=== PATIENT | female | born 1950 | race Hispanic/Latino ===

== ENCOUNTER → 2020-03-25 | Outpatient (CLI) | payer MEDICARE | END | disposition home or self-care (01) | LOC: SHCH 10:23 | PROVIDERS: ATTEND Obstetrics & Gynecology | DX: Z12.31 Encounter for screening mammogram for malignant neoplasm of breast (principal); N64.89 Other specified disorders of breast | CPT/HCPCS: 77067 ==

== ENCOUNTER → 2022-04-28 | Outpatient (CLI) | payer OTHER, MEDICARE | END | disposition home or self-care (01) | LOC: RAH 11:14 | PROVIDERS: ATTEND Physical Medicine & Rehabilitation | DX: M54.2 Cervicalgia (principal); M25.511 Pain in right shoulder; M25.512 Pain in left shoulder; M75.42 Impingement syndrome of left shoulder; M54.12 Radiculopathy, cervical region | CPT/HCPCS: 72050; 73030 ==

== ENCOUNTER → 2022-05-19 | Outpatient (CLI) | payer OTHER, MEDICARE | END | disposition home or self-care (01) | LOC: RAH 13:29 | PROVIDERS: ATTEND Physical Medicine & Rehabilitation | DX: M47.812 Spondylosis without myelopathy or radiculopathy, cervical region (principal); M48.02 Spinal stenosis, cervical region; M54.2 Cervicalgia; M54.12 Radiculopathy, cervical region | CPT/HCPCS: 72141 ==

== ENCOUNTER 2022-05-23 17:52 | Emergency (ER) | payer OTHER, MEDICARE ==
[~2022-05-23] VITALS: Ht 157.5 cm; Wt 72.6 kg
[2022-05-23 18:23] LABS: BASOPHILS % (AUTO) 0.4 % (0.0-5.0); EOSINOPHILS % (AUTO) 0.1 % (0.0-8.0); HEMATOCRIT 39.3 % (36-48); LYMPHOCYTES % (AUTO) 15.9 % (21.0-51.0); MEAN CORPUSCULAR HEMOGLOBIN 29.2 pg (27.0-33.0); MEAN CORPUSCULAR HGB CONC 31.8 g/dL (32.0-36.0); MEAN CORPUSCULAR VOLUME 91.8 fL (79-99); MONOCYTES % (AUTO) 6.7 % (3.0-13.0); NEUTROPHILS % (AUTO) 76.7 % (40.0-77.0); PLATELET COUNT (AUTO) 201 K/uL (130-400); RED BLOOD CELL COUNT(AUTO) 4.28 MIL/uL (4.00-5.50); RED CELL DISTRIBUTION WIDTH 15.8 % (11.0-15.5); WHITE BLOOD COUNT (AUTO) 9.2 K/uL (4.8-10.8)
[2022-05-23 18:32] LABS: CREATININE 0.5 mg/dL (0.5-1.5); POTASSIUM 3.7 mmol/L (3.5-5.1)
[2022-05-23 18:36] LABS: ALBUMIN 3.2 g/dL (3.5-5.0); MAGNESIUM 1.8 mg/dL (1.80-2.40); TOTAL PROTEIN, SERUM 6.4 g/dL (6.0-8.3)
[2022-05-23] MEDS ORDERED: IOHEXOL 350 MG/ML 100ML INFUS..BTL IV ONE (21:58)
[2022-05-23] MEDS ORDERED: IBUP-1493 PO (22:51)
[2022-05-23] MEDS ORDERED: OMEP40CA21 PO (22:51)
[2022-05-23 23:00] VITALS: BP 108/71
== END 2022-05-23 23:17 | disposition home or self-care (01) ==
LOC: EDH 17:52
DX: M47.816 Spondylosis without myelopathy or radiculopathy, lumbar region (principal); R91.1 Solitary pulmonary nodule; K44.9 Diaphragmatic hernia without obstruction or gangrene; M19.90 Unspecified osteoarthritis, unspecified site; E78.00 Pure hypercholesterolemia, unspecified; I10 Essential (primary) hypertension; J44.9 Chronic obstructive pulmonary disease, unspecified; E03.9 Hypothyroidism, unspecified; Z79.899 Other long term (current) drug therapy
CPT/HCPCS: 99285; 74177; 76705; 71045; 83735; 84484 ×2; 80053; 83880; 85025; 85378; 36415; 93005; Q9967

== ENCOUNTER → 2022-07-28 | Outpatient (CLI) | payer OTHER, MEDICARE ==
[~2022-07-28] MED LIST: IBUP-1493 PO; OMEP40CA21 PO
== END | disposition home or self-care (01) ==
LOC: RAH 10:16
PROVIDERS: ATTEND Physician Assistant
DX: M47.817 Spondylosis without myelopathy or radiculopathy, lumbosacral region (principal); M47.811 Spondylosis without myelopathy or radiculopathy, occipito-atlanto-axial region; M46.1 Sacroiliitis, not elsewhere classified
CPT/HCPCS: 72110

== ENCOUNTER → 2022-07-31 | Outpatient (CLI) | payer OTHER, MEDICARE ==
[~2022-07-31] MED LIST changes: +PRED20TA3 PO
== END | disposition home or self-care (01) ==
LOC: RAH 10:46
PROVIDERS: ATTEND Physician Assistant
DX: M85.89 Other specified disorders of bone density and structure, multiple sites (principal); M46.1 Sacroiliitis, not elsewhere classified; M25.551 Pain in right hip; G14 Postpolio syndrome
CPT/HCPCS: 72170; 73522

== ENCOUNTER 2022-08-02 07:51 | Emergency (ER) | payer OTHER, MEDICARE ==
[~2022-08-02] VITALS: Ht 152.4 cm; Wt 77.1 kg
[~2022-08-02 07:51] MED LIST changes: -PRED20TA3 PO
[2022-08-02 10:00] LABS: BASOPHILS % (AUTO) 0.8 % (0.0-5.0); HEMATOCRIT 42.6 % (36-48); LYMPHOCYTES % (AUTO) 22.4 % (21.0-51.0); MEAN CORPUSCULAR HEMOGLOBIN 29.1 pg (27.0-33.0); MEAN CORPUSCULAR HGB CONC 31.9 g/dL (32.0-36.0); MEAN CORPUSCULAR VOLUME 91.2 fL (79-99); MONOCYTES % (AUTO) 7.5 % (3.0-13.0); NEUTROPHILS % (AUTO) 68.8 % (40.0-77.0); PLATELET COUNT (AUTO) 238 K/uL (130-400); RED BLOOD CELL COUNT(AUTO) 4.67 MIL/uL (4.00-5.50); RED CELL DISTRIBUTION WIDTH 14.4 % (11.0-15.5); WHITE BLOOD COUNT (AUTO) 7.4 K/uL (4.8-10.8)
[2022-08-02] MEDS ORDERED: MORPHINE 4 MG SYG IM ONE (10:00)
[2022-08-02 10:13] LABS: CREATININE 0.5 mg/dL (0.5-1.5); POTASSIUM 3.7 mmol/L (3.5-5.1)
[2022-08-02 10:17] LABS: ALBUMIN 3.5 g/dL (3.5-5.0); CRP QUANTITATIVE 6.8 mg/L (0.00-9.0); TOTAL PROTEIN, SERUM 6.8 g/dL (6.0-8.3)
[2022-08-02 11:00] LABS: ERYTHROCYTE SEDIMENTATION RATE 16 MM/HR (0-30)
[2022-08-02] MEDS ORDERED: DEXAMETHASONE SOD PHOSPHATE 4 MG/ML 1ML VIAL IVP ONE (11:00)
[2022-08-02] MEDS ORDERED: PRED20TA3 PO (12:04)
[2022-08-02 12:38] VITALS: BP 137/70
== END 2022-08-02 12:27 | disposition home or self-care (01) ==
LOC: EDH 07:51
DX: M46.1 Sacroiliitis, not elsewhere classified (principal); Z86.12 Personal history of poliomyelitis; I10 Essential (primary) hypertension; E78.00 Pure hypercholesterolemia, unspecified; M19.90 Unspecified osteoarthritis, unspecified site; Z98.890 Other specified postprocedural states
CPT/HCPCS: 99284; 96374; 80053; 85025; 85651; 86140; 36415; 96372; J1100; J2270

== ENCOUNTER 2022-08-09 12:06 | Emergency (ER) | payer OTHER, MEDICARE ==
[~2022-08-09] VITALS: Ht 144.8 cm; Wt 70.3 kg
[~2022-08-09 12:06] MED LIST changes: +PRED20TA3 PO
[2022-08-09] MEDS ORDERED: MORPHINE 4 MG SYG IVP ONE ×2 (12:30→15:30)
[2022-08-09] MEDS ORDERED: ONDANSETRON 4MG INJ IV ONE (12:30)
[2022-08-09 12:55] LABS: BASOPHILS % (AUTO) 0.4 % (0.0-5.0); EOSINOPHILS % (AUTO) 0.1 % (0.0-8.0); HEMATOCRIT 43.3 % (36-48); LYMPHOCYTES % (AUTO) 14.9 % (21.0-51.0); MEAN CORPUSCULAR HEMOGLOBIN 29.6 pg (27.0-33.0); MEAN CORPUSCULAR HGB CONC 31.9 g/dL (32.0-36.0); MEAN CORPUSCULAR VOLUME 92.9 fL (79-99); MONOCYTES % (AUTO) 5.6 % (3.0-13.0); NEUTROPHILS % (AUTO) 78.2 % (40.0-77.0); PLATELET COUNT (AUTO) 239 K/uL (130-400); RED BLOOD CELL COUNT(AUTO) 4.66 MIL/uL (4.00-5.50); RED CELL DISTRIBUTION WIDTH 14.5 % (11.0-15.5); WHITE BLOOD COUNT (AUTO) 10.9 K/uL (4.8-10.8)
[2022-08-09 13:25] LABS: CREATININE 0.5 mg/dL (0.5-1.5); POTASSIUM 3.8 mmol/L (3.5-5.1)
[2022-08-09 13:34] LABS: TOTAL PROTEIN, SERUM 6.4 g/dL (6.0-8.3)
[2022-08-09] MEDS ORDERED: IOHEXOL-350 75 ML VIAL IV ONE (13:44)
[2022-08-09 15:45] LABS: APPEARANCE,URINE CLEAR (CLEAR); BILIRUBIN,URINE NEGATIVE (NEGATIVE); COLOR,URINE LIGHT-YELLOW (YELLOW); GLUCOSE, URINE (UA) NEGATIVE (NEGATIVE); KETONES,URINE NEGATIVE (NEGATIVE); LEUKOCYTE ESTERASE ,URINE NEGATIVE Leu/uL (NEGATIVE); NITRATE,URINE NEGATIVE (NEGATIVE); OCCULT BLOOD,URINE NEGATIVE (NEGATIVE); PROTEIN,URINE 10 mg/dL (NEGATIVE); UROBILINOGEN,URINE 0.2 mg/dL (0.2-1.0)
[2022-08-09 15:46] LABS: BACTERIA,URINE RARE /HPF (None Seen); MUCUS,URINE RARE LPF (None Seen); SQUAMOUS EPITHELIAL CELL,UR RARE /HPF (0-2); YEAST,URINE BUDDING RARE /HPF (None Seen)
[2022-08-09] MEDS ORDERED: OXYC-38 PO (16:08)
[2022-08-09 16:28] VITALS: BP 126/71
== END 2022-08-09 16:40 | disposition home or self-care (01) ==
LOC: EDH 12:06
DX: M54.50 Low back pain, unspecified (principal); R10.12 Left upper quadrant pain; I10 Essential (primary) hypertension; E78.00 Pure hypercholesterolemia, unspecified; Z90.49 Acquired absence of other specified parts of digestive tract; Z79.1 Long term (current) use of non-steroidal anti-inflammatories (NSAID); Z79.52 Long term (current) use of systemic steroids; Z79.899 Other long term (current) drug therapy
CPT/HCPCS: 99285; 74177; 96374; 96375; 84484; 80053; 83690; 85025; 81001; 36415; 96376; 93005; J2405; J2270 ×2; Q9967

== ENCOUNTER 2022-08-12 10:42 | Emergency (ER) | payer OTHER, MEDICARE ==
[~2022-08-12] VITALS: Ht 152.4 cm; Wt 70.3 kg
[~2022-08-12 10:42] MED LIST changes: +OXYC-38 PO
[2022-08-12 11:42] LABS: BASOPHILS % (AUTO) 0.3 % (0.0-5.0); EOSINOPHILS % (AUTO) 0.1 % (0.0-8.0); LYMPHOCYTES % (AUTO) 12.8 % (21.0-51.0); MEAN CORPUSCULAR HEMOGLOBIN 29.7 pg (27.0-33.0); MONOCYTES % (AUTO) 7.8 % (3.0-13.0); NEUTROPHILS % (AUTO) 78.4 % (40.0-77.0); PLATELET COUNT (AUTO) 238 K/uL (130-400); RED BLOOD CELL COUNT(AUTO) 4.41 MIL/uL (4.00-5.50); RED CELL DISTRIBUTION WIDTH 14.2 % (11.0-15.5); WHITE BLOOD COUNT (AUTO) 10.8 K/uL (4.8-10.8)
[2022-08-12 12:17] LABS: CREATININE 0.6 mg/dL (0.5-1.5); POTASSIUM 4.2 mmol/L (3.5-5.1)
[2022-08-12 12:21] LABS: ALBUMIN 3.2 g/dL (3.5-5.0); TOTAL PROTEIN, SERUM 6.6 g/dL (6.0-8.3)
[2022-08-12] MEDS ORDERED: MORPHINE 2 MG SYG IVP ONE (13:00)
[2022-08-12] MEDS ORDERED: SOLU-MEDROL 125MG VIAL IVP ONE (13:00)
[2022-08-12] MEDS ORDERED: ONDANSETRON 4MG INJ IVP ONE (13:00)
[2022-08-12] MEDS ORDERED: 0.9% NACL 500ML IV.SOLN 500 ML IV ONE (13:00)
[2022-08-12] MEDS ORDERED: CYCL5TAB PO (14:51)
[2022-08-12] MEDS ORDERED: LIDOP TP (14:51)
[2022-08-12] MEDS ORDERED: PANT40TA54 PO (14:51)
[2022-08-12 15:11] VITALS: BP 132/68
[2022-08-17] MEDS ORDERED: ACET-2079 PO (14:43)
[2022-08-17] MEDS ORDERED: ONDA4TAB10 PO (14:43)
[2022-08-17] MEDS ORDERED: GABA600T10 PO (14:43)
[2022-08-17] MEDS ORDERED: ALBU6.7H14 IH (14:43)
[2022-08-17] MEDS ORDERED: TRAM50TA4 PO (14:43)
[2022-08-17] MEDS ORDERED: CYCL-309 PO (14:43)
[2022-08-17] MEDS ORDERED: MELO-106 PO (14:43)
[2022-08-17] MEDS ORDERED: PANT40TA54 PO (14:43)
[2022-08-17] MEDS ORDERED: LEVO100C4 PO (14:43)
[2022-08-17] MEDS ORDERED: ISOS30TA92 PO (14:43)
[2022-08-17] MEDS ORDERED: PARO10TA71 PO (14:43)
[2022-08-17] MEDS ORDERED: ALBU90AE2 IH (14:43)
== END 2022-08-12 15:10 | disposition home or self-care (01) ==
LOC: EDH 10:42
DX: R91.1 Solitary pulmonary nodule (principal); M47.816 Spondylosis without myelopathy or radiculopathy, lumbar region; Z79.1 Long term (current) use of non-steroidal anti-inflammatories (NSAID); Z79.52 Long term (current) use of systemic steroids; Z85.01 Personal history of malignant neoplasm of esophagus
CPT/HCPCS: 99285; 74176; 96374; 96375; 80053; 83690; 85025; 36415; J2930; J2405

== ENCOUNTER 2022-09-26 15:08 | Inpatient (IN) | payer OTHER, MEDICARE ==
[~2022-09-26] VITALS: Ht 160 cm; Wt 69.1 kg
[~2022-09-26 15:08] MED LIST changes: +ACET-2893 PO; +ALBU6.7H14 IH; +ALBU90AE2 IH; +CYCL-309 PO; +DEXA4TAB PO; +GABA600T10 PO; -IBUP-1493 PO; +ISOS30TA92 PO; +LACT PO; +LEVO100C4 PO; +LIDOP TP; +MELO-106 PO; -OMEP40CA21 PO; +ONDA4TAB10 PO; +PANT40TA54 PO; +PARO10TA71 PO; +PERCT PO; -PRED20TA3 PO; +TRAM50TA4 PO
[2022-09-26] MEDS ORDERED: ZOSYN 3.375GM +NS 50ML IVPB ONE (15:30)
[2022-09-26] MEDS ORDERED: VANCOMYCIN KIT 1 GM/250 ML IV.KIT IV ONE (15:30)
[2022-09-26] MEDS ORDERED: 0.9%NACL 1000ML 1,000 ML IV ONE (15:30)
[2022-09-26 15:58] LABS: BASOPHILS % (AUTO) 0.8 % (0.0-5.0); EOSINOPHILS % (AUTO) 0.3 % (0.0-8.0); HEMATOCRIT 34.3 % (36-48); LYMPHOCYTES % (AUTO) 9.4 % (21.0-51.0); MEAN CORPUSCULAR HEMOGLOBIN 28.9 pg (27.0-33.0); MEAN CORPUSCULAR HGB CONC 31.8 g/dL (32.0-36.0); MONOCYTES % (AUTO) 11.3 % (3.0-13.0); NEUTROPHILS % (AUTO) 71.4 % (40.0-77.0); NUCLEATED RED BLOOD CELLS 0.5 % (0.0-0.19); PLATELET COUNT (AUTO) 285 K/uL (130-400); RED BLOOD CELL COUNT(AUTO) 3.77 MIL/uL (4.00-5.50); RED CELL DISTRIBUTION WIDTH 16.6 % (11.0-15.5); WHITE BLOOD COUNT (AUTO) 13.2 K/uL (4.8-10.8)
[2022-09-26] MEDS ORDERED: VANCOMYCIN 1G/250ML KIT 250 ML IV ONE (16:00)
[2022-09-26 16:07] LABS: INR 1.01 (0.85-1.15)
[2022-09-26 16:09] LABS: PARTIAL THROMBOPLASTIN TIME 33.1 SEC (26.3-35.5)
[2022-09-26 16:18] LABS: CREATININE 0.3 mg/dL (0.5-1.5); POTASSIUM 4.3 mmol/L (3.5-5.1)
[2022-09-26 16:19] LABS: ALBUMIN 1.6 g/dL (3.5-5.0)
[2022-09-26] MEDS ORDERED: KETOROLAC 15MG/ML VIAL (15MG/ML) IV ONE (16:30)
[2022-09-26 16:34] LABS: APPEARANCE,URINE CLEAR (CLEAR); BILIRUBIN,URINE NEGATIVE (NEGATIVE); COLOR,URINE LIGHT-YELLOW (YELLOW); GLUCOSE, URINE (UA) NEGATIVE (NEGATIVE); KETONES,URINE NEGATIVE (NEGATIVE); LEUKOCYTE ESTERASE ,URINE NEGATIVE Leu/uL (NEGATIVE); NITRATE,URINE NEGATIVE (NEGATIVE); OCCULT BLOOD,URINE MODERATE (NEGATIVE); PROTEIN,URINE NEGATIVE (NEGATIVE); UROBILINOGEN,URINE 0.2 mg/dL (0.2-1.0)
[2022-09-26 16:42] LABS: MUCUS,URINE RARE LPF (None Seen); WBC,URINE 0-1 /HPF (0-1)
[2022-09-26 16:51] LABS: BAND NEUTROPHILS % (MANUAL) 50 % (0-2); LYMPHOCYTES % (MANUAL) 15 % (22-44); MONOCYTES % (MANUAL) 11 % (2-9); SEGMENTED NEUTROPHILS % 24 % (40-70)
[2022-09-26 16:55] LABS: MAN.DIFF COMMENT-IMPRESSION MANUAL DIFFERENTIAL; PLATELET MORPHOLOGY COMMENT ADEQUATE
[2022-09-26] MEDS ORDERED: LACTATED RINGERS 1000ML 1,000 ML IV ONE (17:00)
[2022-09-26] MEDS ORDERED: DIATR MEGLU/DIATRIZOATE SODIUM 30 ML BOTTLE ONE (17:18)
[2022-09-26] MEDS ORDERED: VANCOMYCIN PROTOCOL PER PHARMACY IV SCH (18:00)
[2022-09-26] MEDS ORDERED: HYDRALAZINE 20MG/ML VIAL IV PRN (18:00)
[2022-09-26] MEDS: INSULIN HUMULIN R 100 UNIT/ML 3ML SQ SCH ×2 (18:00→22:20)
[2022-09-26] MEDS ORDERED: GLUCAGON 1MG KIT 1 MG ML IM PRN (18:00)
[2022-09-26] MEDS: LACTATED RINGERS 1000ML 1,000 ML IV SCH ×2 (18:00→22:21)
[2022-09-26] MEDS ORDERED: DEXTROSE 50%-WATER 50 ML DISP.SYRIN IV PRN (18:00)
[2022-09-26] MEDS ORDERED: DiphenhydrAMINE HCL 50 MG/ML VIAL IV PRN (18:00)
[2022-09-26] MEDS ORDERED: ALBUTEROL 0.083% 2.5 MG/3 ML INH IH PRN (18:00)
[2022-09-26] MEDS ORDERED: IOHEXOL 350 MG/ML 100ML INFUS..BTL IV ONE (18:40)
[2022-09-26] MEDS ORDERED: 0.9%NACL 50ML IV SCH (22:00)
[2022-09-26] MEDS: ZOSYN 3.375GM +NS 50ML IVPB SCH (22:20)
[2022-09-26] MEDS: FAMOTIDINE 20MG VIAL IV SCH (22:20)
[2022-09-27] MEDS: FLUCONAZOLE 200 MG/NS 100 ML IV SCH (02:19)
[2022-09-27 02:23] LABS: APPEARANCE,URINE CLEAR (CLEAR); BILIRUBIN,URINE NEGATIVE (NEGATIVE); COLOR,URINE LIGHT-YELLOW (YELLOW); GLUCOSE, URINE (UA) NEGATIVE (NEGATIVE); KETONES,URINE NEGATIVE (NEGATIVE); LEUKOCYTE ESTERASE ,URINE NEGATIVE Leu/uL (NEGATIVE); NITRATE,URINE NEGATIVE (NEGATIVE); OCCULT BLOOD,URINE NEGATIVE (NEGATIVE); PROTEIN,URINE NEGATIVE (NEGATIVE); UROBILINOGEN,URINE 0.2 mg/dL (0.2-1.0)
[2022-09-27 05:40] LABS: BASOPHILS % (AUTO) 0.5 % (0.0-5.0); EOSINOPHILS % (AUTO) 0.2 % (0.0-8.0); HEMATOCRIT 31.8 % (36-48); MEAN CORPUSCULAR HEMOGLOBIN 29.1 pg (27.0-33.0); MEAN CORPUSCULAR HGB CONC 31.4 g/dL (32.0-36.0); MEAN CORPUSCULAR VOLUME 92.4 fL (79-99); MONOCYTES % (AUTO) 10.4 % (3.0-13.0); NEUTROPHILS % (AUTO) 75.5 % (40.0-77.0); NUCLEATED RED BLOOD CELLS 0.2 % (0.0-0.19); PLATELET COUNT (AUTO) 233 K/uL (130-400); RED BLOOD CELL COUNT(AUTO) 3.44 MIL/uL (4.00-5.50); RED CELL DISTRIBUTION WIDTH 16.9 % (11.0-15.5); WHITE BLOOD COUNT (AUTO) 10.4 K/uL (4.8-10.8)
[2022-09-27 05:57] LABS: PROTHROMBIN TIME 10.9 SEC (9.6-11.6)
[2022-09-27 05:59] LABS: CREATININE 0.3 mg/dL (0.5-1.5); MAGNESIUM 1.8 mg/dL (1.80-2.40); PHOSPHORUS 3.3 mg/dL (2.5-4.9)
[2022-09-27] MEDS: INSULIN HUMULIN R 100 UNIT/ML 3ML SQ SCH ×3 (06:00→18:00)
[2022-09-27] MEDS: ZOSYN 3.375GM +NS 50ML IVPB SCH ×3 (06:11→21:03)
[2022-09-27] MEDS: FAMOTIDINE 20MG VIAL IV SCH ×2 (09:59→21:03)
[2022-09-27] MEDS: LACTATED RINGERS 1000ML 1,000 ML IV SCH ×3 (10:00→21:03)
[2022-09-27 17:30] VITALS: BP 117/64
[2022-09-27] MEDS: VANCOMYCIN 1G/250ML KIT 250 ML IV SCH (18:26)
[2022-09-27 19:30] VITALS: BP 122/73
[2022-09-27 23:30] VITALS: BP 138/62
[2022-09-28] VITALS (31 sets, daily range): BP systolic 101–167; BP diastolic 41–73
[2022-09-28] MEDS: FLUCONAZOLE 200 MG/NS 100 ML IV SCH (02:20)
[2022-09-28] MEDS: LACTATED RINGERS 1000ML 1,000 ML IV SCH ×3 (04:28→19:52)
[2022-09-28] MEDS: ZOSYN 3.375GM +NS 50ML IVPB SCH ×3 (05:16→19:52)
[2022-09-28] MEDS: INSULIN HUMULIN R 100 UNIT/ML 3ML SQ SCH ×4 (05:17→18:00)
[2022-09-28 06:40] LABS: BASOPHILS % (AUTO) 0.3 % (0.0-5.0); EOSINOPHILS % (AUTO) 0.2 % (0.0-8.0); HEMATOCRIT 27.3 % (36-48); LYMPHOCYTES % (AUTO) 12.4 % (21.0-51.0); MEAN CORPUSCULAR HEMOGLOBIN 29.1 pg (27.0-33.0); MEAN CORPUSCULAR HGB CONC 31.9 g/dL (32.0-36.0); MEAN CORPUSCULAR VOLUME 91.3 fL (79-99); MONOCYTES % (AUTO) 12.4 % (3.0-13.0); NEUTROPHILS % (AUTO) 70.4 % (40.0-77.0); PLATELET COUNT (AUTO) 206 K/uL (130-400); RED BLOOD CELL COUNT(AUTO) 2.99 MIL/uL (4.00-5.50); RED CELL DISTRIBUTION WIDTH 16.6 % (11.0-15.5)
[2022-09-28 06:52] LABS: CREATININE 0.2 mg/dL (0.5-1.5); POTASSIUM 3.4 mmol/L (3.5-5.1)
[2022-09-28] MEDS: FAMOTIDINE 20MG VIAL IV SCH ×2 (08:44→19:52)
[2022-09-28] MEDS: POTASSIUM CHLORIDE 10MEQ/100ML 100 ML IV PRN (08:44)
[2022-09-28] MEDS ORDERED: MIDAZOLAM HCL 1 MG/ML 2ML VIAL ONE (12:59)
[2022-09-28] MEDS ORDERED: LIDOCAINE PF 100MG/5ML (2%) SYRINGE 5ML ONE (12:59)
[2022-09-28] MEDS ORDERED: SUCCINYLCHOLINE CHLORIDE 20 MG/ML 10 ML VIAL ONE (12:59)
[2022-09-28] MEDS ORDERED: DEXAMETHASONE SOD PHOSPHATE 10MG/ML 1ML VIAL ONE (12:59)
[2022-09-28] MEDS ORDERED: NEOSTIGMINE 5MG/5ML SYR IV ONE (13:00)
[2022-09-28] MEDS ORDERED: PROPOFOL 10 MG/ML 20ML VIAL IV ONE (13:00)
[2022-09-28] MEDS ORDERED: ONDANSETRON 4MG INJ ONE (13:00)
[2022-09-28] MEDS ORDERED: FENTANYL CITRATE PF 50 MCG/1 ML 2ML VIAL ONE (13:00)
[2022-09-28] MEDS ORDERED: GLYCOPYRROLATE 1 MG/5 ML SYRINGE ONE (13:00)
[2022-09-28] MEDS ORDERED: ROCURONIUM 10MG/1ML SYR 10 MG/ML ML ONE (13:00)
[2022-09-28] MEDS ORDERED: MORPHINE PF 100MG/10ML AMP IV ONE (14:05)
[2022-09-28] MEDS ORDERED: BUPIVACAINE/PF 0.25% 30ML VIAL IJ ONE (14:20)
[2022-09-28] MEDS ORDERED: KETOROLAC 30MG VIAL (30MG/ML) ONE (14:27)
[2022-09-28] MEDS ORDERED: PHENYLEPHRINE HCL 10 MG/ML 1ML VIAL IV ONE (14:44)
[2022-09-28] MEDS: ONDANSETRON 4MG INJ IVP PRN (16:03)
[2022-09-28] MEDS ORDERED: PROMETHAZINE HCL 25 MG/ML 1ML AMPULE IM ONE (16:12)
[2022-09-28] MEDS ORDERED: CLINIMIX-E 5%AA /D15%W 2000ML 2,000 ML IV ONE (17:30)
[2022-09-28] MEDS: VANCOMYCIN 1G/250ML KIT 250 ML IV SCH (17:47)
[2022-09-29] VITALS (7 sets, daily range): BP systolic 122–158; BP diastolic 58–92
[2022-09-29] MEDS: INSULIN HUMULIN R 100 UNIT/ML 3ML SQ SCH ×4 (00:13→17:22)
[2022-09-29] MEDS: FLUCONAZOLE 200 MG/NS 100 ML IV SCH (02:11)
[2022-09-29] MEDS: ZOSYN 3.375GM +NS 50ML IVPB SCH ×3 (05:33→21:51)
[2022-09-29] MEDS: LACTATED RINGERS 1000ML 1,000 ML IV SCH ×2 (06:20→10:48)
[2022-09-29 06:42] LABS: BASOPHILS % (AUTO) 0.3 % (0.0-5.0); EOSINOPHILS % (AUTO) 0.1 % (0.0-8.0); HEMATOCRIT 28.4 % (36-48); LYMPHOCYTES % (AUTO) 6.5 % (21.0-51.0); MEAN CORPUSCULAR HEMOGLOBIN 28.7 pg (27.0-33.0); MEAN CORPUSCULAR HGB CONC 30.6 g/dL (32.0-36.0); MEAN CORPUSCULAR VOLUME 93.7 fL (79-99); MONOCYTES % (AUTO) 4.4 % (3.0-13.0); NEUTROPHILS % (AUTO) 87.6 % (40.0-77.0); PLATELET COUNT (AUTO) 213 K/uL (130-400); RED BLOOD CELL COUNT(AUTO) 3.03 MIL/uL (4.00-5.50); RED CELL DISTRIBUTION WIDTH 16.4 % (11.0-15.5); WHITE BLOOD COUNT (AUTO) 15.3 K/uL (4.8-10.8)
[2022-09-29 06:50] LABS: CREATININE 0.5 mg/dL (0.5-1.5); POTASSIUM 3.7 mmol/L (3.5-5.1)
[2022-09-29] MEDS: MORPHINE 2 MG SYG IVP PRN ×3 (07:25→19:52)
[2022-09-29] MEDS: ONDANSETRON 4MG INJ IVP PRN ×2 (07:25→19:52)
[2022-09-29] MEDS: FAMOTIDINE 20MG VIAL IV SCH ×2 (09:25→19:52)
[2022-09-29] MEDS: POTASSIUM CHLORIDE 10MEQ/100ML 100 ML IV PRN (17:25)
[2022-09-29] MEDS ORDERED: VANCOMYCIN 1G/250ML KIT 250 ML IV SCH (19:00)
[2022-09-29] MEDS ORDERED: FAT EMULSIONS 20% 250ML 250 ML IV ONE (19:30)
[2022-09-29] MEDS ORDERED: CLINIMIX-E 5%AA /D15%W 2000ML 2,000 ML IV ONE (19:30)
[2022-09-29] MEDS: VANCOMYCIN 1G/250ML KIT 250 ML IV SCH (19:51)
[2022-09-30] MEDS: INSULIN HUMULIN R 100 UNIT/ML 3ML SQ SCH ×4 (00:48→16:40)
[2022-09-30] MEDS: FLUCONAZOLE 200 MG/NS 100 ML IV SCH (01:16)
[2022-09-30] MEDS: MORPHINE 2 MG SYG IVP PRN ×4 (01:24→17:16)
[2022-09-30 04:19] VITALS: BP 143/72
[2022-09-30 05:27] LABS: BASOPHILS % (AUTO) 0.1 % (0.0-5.0); EOSINOPHILS % (AUTO) 0.1 % (0.0-8.0); HEMATOCRIT 23.6 % (36-48); MEAN CORPUSCULAR HEMOGLOBIN 28.9 pg (27.0-33.0); MEAN CORPUSCULAR HGB CONC 30.9 g/dL (32.0-36.0); MEAN CORPUSCULAR VOLUME 93.3 fL (79-99); NEUTROPHILS % (AUTO) 82.2 % (40.0-77.0); PLATELET COUNT (AUTO) 194 K/uL (130-400); RED BLOOD CELL COUNT(AUTO) 2.53 MIL/uL (4.00-5.50); RED CELL DISTRIBUTION WIDTH 16.7 % (11.0-15.5); WHITE BLOOD COUNT (AUTO) 13.4 K/uL (4.8-10.8)
[2022-09-30] MEDS: ZOSYN 3.375GM +NS 50ML IVPB SCH ×3 (05:45→21:07)
[2022-09-30 05:56] LABS: ALBUMIN 1.2 g/dL (3.5-5.0); CREATININE 0.4 mg/dL (0.5-1.5); MAGNESIUM 1.7 mg/dL (1.80-2.40); POTASSIUM 3.5 mmol/L (3.5-5.1); TOTAL PROTEIN, SERUM 4.4 g/dL (6.0-8.3)
[2022-09-30 08:00] VITALS: BP 134/67
[2022-09-30] MEDS ORDERED: MAGNESIUM 2GM PREMIX 50ML 50 ML IV SCH (08:00)
[2022-09-30] MEDS ORDERED: POTASSIUM CHLORIDE 20 MEQ/100 ML BAG IV SCH (08:15)
[2022-09-30] MEDS: FAMOTIDINE 20MG VIAL IV SCH ×2 (08:37→21:07)
[2022-09-30 12:00] VITALS: BP 111/79
[2022-09-30] MEDS: VANCOMYCIN 1G/250ML KIT 250 ML IV SCH (13:58)
[2022-09-30] MEDS ORDERED: [UNRECOGNIZED DRUG - NUTRITION] IV ONE (15:00)
[2022-09-30 16:00] VITALS: BP 138/64
[2022-09-30] MEDS: MAGNESIUM 2GM PREMIX 50ML 50 ML IV PRN (17:57)
[2022-09-30 19:50] VITALS: BP 158/73
[2022-09-30 23:15] VITALS: BP 157/83
[2022-10-01] VITALS (7 sets, daily range): BP systolic 142–171; BP diastolic 62–81
[2022-10-01] MEDS: FLUCONAZOLE 200 MG/NS 100 ML IV SCH (01:47)
[2022-10-01] MEDS: ZOSYN 3.375GM +NS 50ML IVPB SCH ×3 (05:22→22:28)
[2022-10-01] MEDS: MORPHINE 2 MG SYG IVP PRN ×5 (05:23→17:34)
[2022-10-01] MEDS: INSULIN HUMULIN R 100 UNIT/ML 3ML SQ SCH ×4 (05:37→17:03)
[2022-10-01 07:52] LABS: BASOPHILS % (AUTO) 0.3 % (0.0-5.0); EOSINOPHILS % (AUTO) 0.4 % (0.0-8.0); HEMATOCRIT 23.8 % (36-48); LYMPHOCYTES % (AUTO) 13.4 % (21.0-51.0); MEAN CORPUSCULAR HEMOGLOBIN 28.7 pg (27.0-33.0); MEAN CORPUSCULAR HGB CONC 31.1 g/dL (32.0-36.0); MEAN CORPUSCULAR VOLUME 92.2 fL (79-99); MONOCYTES % (AUTO) 7.8 % (3.0-13.0); NEUTROPHILS % (AUTO) 76.3 % (40.0-77.0); NUCLEATED RED BLOOD CELLS 0.4 % (0.0-0.19); PLATELET COUNT (AUTO) 183 K/uL (130-400); RED BLOOD CELL COUNT(AUTO) 2.58 MIL/uL (4.00-5.50); RED CELL DISTRIBUTION WIDTH 16.8 % (11.0-15.5); WHITE BLOOD COUNT (AUTO) 6.8 K/uL (4.8-10.8)
[2022-10-01 08:08] LABS: ALBUMIN 1.3 g/dL (3.5-5.0); CREATININE 0.3 mg/dL (0.5-1.5); MAGNESIUM 1.8 mg/dL (1.80-2.40); POTASSIUM 3.9 mmol/L (3.5-5.1); TOTAL PROTEIN, SERUM 4.6 g/dL (6.0-8.3)
[2022-10-01] MEDS: FAMOTIDINE 20MG VIAL IV SCH ×2 (08:36→21:05)
[2022-10-01] MEDS ORDERED: VANCOMYCIN 1G/250ML KIT 250 ML IV SCH (09:00)
[2022-10-01] MEDS: NYSTATIN 100000 UNIT/ML 5ML UDCUP PO SCH (17:33)
[2022-10-01] MEDS ORDERED: FAT EMULSIONS 20% 250ML 250 ML IV ONE (19:00)
[2022-10-01] MEDS ORDERED: ALTEPLASE 2MG VIAL 2 MG/VIAL VIAL IVCATH ONE (20:00)
[2022-10-01] MEDS ORDERED: MULTITRACE-4 ADULT 10ML VIAL 3 ML, M.V.I. IV [ADULT] 10 ML in CLINIMIX-E 5%AA /D15%W 2... IV ONE (20:00)
[2022-10-01] MEDS: METOCLOPRAMIDE 10 MG/2 ML VIAL IVP SCH (21:06)
[2022-10-01] MEDS: 0.9% NACL 250ML 250 ML IV SCH (22:06)
[2022-10-01] MEDS: VANCOMYCIN 750MG VIAL IVPB SCH (22:06)
[2022-10-02] MEDS: NYSTATIN 100000 UNIT/ML 5ML UDCUP PO SCH ×3 (02:09→18:33)
[2022-10-02] MEDS: FLUCONAZOLE 200 MG/NS 100 ML IV SCH (02:09)
[2022-10-02] MEDS: INSULIN HUMULIN R 100 UNIT/ML 3ML SQ SCH ×4 (02:11→18:00)
[2022-10-02 04:03] VITALS: BP 138/69
[2022-10-02] MEDS: ZOSYN 3.375GM +NS 50ML IVPB SCH ×3 (05:26→23:32)
[2022-10-02 06:47] LABS: BASOPHILS % (AUTO) 0.6 % (0.0-5.0); EOSINOPHILS % (AUTO) 0.5 % (0.0-8.0); HEMATOCRIT 22.8 % (36-48); LYMPHOCYTES % (AUTO) 14.8 % (21.0-51.0); MEAN CORPUSCULAR HEMOGLOBIN 28.9 pg (27.0-33.0); MEAN CORPUSCULAR HGB CONC 31.6 g/dL (32.0-36.0); MEAN CORPUSCULAR VOLUME 91.6 fL (79-99); MONOCYTES % (AUTO) 6.2 % (3.0-13.0); NUCLEATED RED BLOOD CELLS 0.9 % (0.0-0.19); PLATELET COUNT (AUTO) 151 K/uL (130-400); RED BLOOD CELL COUNT(AUTO) 2.49 MIL/uL (4.00-5.50); RED CELL DISTRIBUTION WIDTH 16.2 % (11.0-15.5); WHITE BLOOD COUNT (AUTO) 6.5 K/uL (4.8-10.8)
[2022-10-02 07:09] LABS: ALBUMIN 1.3 g/dL (3.5-5.0); CREATININE 0.4 mg/dL (0.5-1.5); MAGNESIUM 1.6 mg/dL (1.80-2.40); POTASSIUM 3.1 mmol/L (3.5-5.1); TOTAL PROTEIN, SERUM 4.6 g/dL (6.0-8.3)
[2022-10-02 07:30] VITALS: BP 130/76
[2022-10-02] MEDS: 0.9% NACL 250ML 250 ML IV SCH ×2 (08:42→21:02)
[2022-10-02] MEDS: FAMOTIDINE 20MG VIAL IV SCH ×2 (08:42→19:39)
[2022-10-02] MEDS: VANCOMYCIN 750MG VIAL IVPB SCH ×2 (08:42→21:01)
[2022-10-02] MEDS: METOCLOPRAMIDE 10 MG/2 ML VIAL IVP SCH ×2 (08:42→19:39)
[2022-10-02] MEDS ORDERED: LORAZEPAM 2 MG/ML 1 ML VIAL IVP PRN (09:30)
[2022-10-02] MEDS: ONDANSETRON 4MG INJ IVP PRN (10:00)
[2022-10-02] MEDS: MAGNESIUM 2GM PREMIX 50ML 50 ML IV PRN (11:22)
[2022-10-02 11:30] VITALS: BP 144/85
[2022-10-02] MEDS: POTASSIUM CHLORIDE 10MEQ/100ML 100 ML IV PRN ×2 (12:49→15:05)
[2022-10-02 15:30] VITALS: BP 138/75
[2022-10-02] MEDS ORDERED: MULTITRACE-4 ADULT 10ML VIAL 3 ML, M.V.I. IV [ADULT] 10 ML in CLINIMIX-E 5%AA /D15%W 2... IV ONE (19:30)
[2022-10-02 20:00] VITALS: BP 160/80
[2022-10-02] MEDS ORDERED: PHARMACY COMMUNICATION MISC SCH (21:30)
[2022-10-03] VITALS (7 sets, daily range): BP systolic 126–151; BP diastolic 69–84
[2022-10-03] MEDS: NYSTATIN 100000 UNIT/ML 5ML UDCUP PO SCH ×4 (00:09→23:42)
[2022-10-03] MEDS: FLUCONAZOLE 200 MG/NS 100 ML IV SCH (01:20)
[2022-10-03] MEDS: ZOSYN 3.375GM +NS 50ML IVPB SCH ×3 (05:09→22:24)
[2022-10-03 05:54] LABS: BASOPHILS % (AUTO) 0.4 % (0.0-5.0); EOSINOPHILS % (AUTO) 0.2 % (0.0-8.0); HEMATOCRIT 24.4 % (36-48); LYMPHOCYTES % (AUTO) 18.4 % (21.0-51.0); MEAN CORPUSCULAR HEMOGLOBIN 28.9 pg (27.0-33.0); MEAN CORPUSCULAR HGB CONC 31.6 g/dL (32.0-36.0); MEAN CORPUSCULAR VOLUME 91.7 fL (79-99); MONOCYTES % (AUTO) 6.4 % (3.0-13.0); NUCLEATED RED BLOOD CELLS 0.5 % (0.0-0.19); PLATELET COUNT (AUTO) 180 K/uL (130-400); RED BLOOD CELL COUNT(AUTO) 2.66 MIL/uL (4.00-5.50); RED CELL DISTRIBUTION WIDTH 16.8 % (11.0-15.5); WHITE BLOOD COUNT (AUTO) 8.2 K/uL (4.8-10.8)
[2022-10-03 06:08] LABS: ALBUMIN 1.4 g/dL (3.5-5.0); CREATININE 0.3 mg/dL (0.5-1.5); MAGNESIUM 1.9 mg/dL (1.80-2.40); POTASSIUM 3.3 mmol/L (3.5-5.1); TOTAL PROTEIN, SERUM 5.1 g/dL (6.0-8.3)
[2022-10-03] MEDS ORDERED: POTASSIUM CHLORIDE 20MEQ/100ML 100 ML IV PRN (06:30)
[2022-10-03] MEDS ORDERED: KCL 20 MEQ ERTAB PO PRN (06:30)
[2022-10-03] MEDS ORDERED: POTASSIUM CHLORIDE 10% ELIXIR 20 MEQ/15 ML UDCUP PO PRN (06:30)
[2022-10-03] MEDS: INSULIN HUMULIN R 100 UNIT/ML 3ML SQ SCH ×5 (06:35→19:51)
[2022-10-03] MEDS: MAGNESIUM 2GM PREMIX 50ML 50 ML IV PRN (06:36)
[2022-10-03] MEDS: ONDANSETRON 4MG INJ IVP PRN (08:32)
[2022-10-03] MEDS: METOCLOPRAMIDE 10 MG/2 ML VIAL IVP SCH ×2 (08:32→19:57)
[2022-10-03] MEDS: FAMOTIDINE 20MG VIAL IV SCH ×2 (08:32→19:57)
[2022-10-03] MEDS: VANCOMYCIN KIT 1 GM/250 ML IV.KIT IV SCH ×2 (08:34→19:57)
[2022-10-04] MEDS ORDERED: PHARMACY COMMUNICATION MISC SCH
[2022-10-04] MEDS: FLUCONAZOLE 200 MG/NS 100 ML IV SCH (00:26)
[2022-10-04 04:00] VITALS: BP 150/80
[2022-10-04] MEDS: ZOSYN 3.375GM +NS 50ML IVPB SCH ×3 (05:32→22:20)
[2022-10-04] MEDS: INSULIN HUMULIN R 100 UNIT/ML 3ML SQ SCH ×4 (06:08→20:09)
[2022-10-04] MEDS ORDERED: M.V.I. IV [ADULT] 10 ML, MULTITRACE-4 ADULT 10ML VIAL 3 ML in CLINIMIX-E 5%AA /D15%W 2... IV ONE (06:30)
[2022-10-04 08:00] VITALS: BP 145/75
[2022-10-04 08:20] LABS: BASOPHILS % (AUTO) 0.3 % (0.0-5.0); EOSINOPHILS % (AUTO) 0.2 % (0.0-8.0); LYMPHOCYTES % (AUTO) 21.5 % (21.0-51.0); MEAN CORPUSCULAR HEMOGLOBIN 28.9 pg (27.0-33.0); MEAN CORPUSCULAR HGB CONC 30.8 g/dL (32.0-36.0); MEAN CORPUSCULAR VOLUME 93.9 fL (79-99); MONOCYTES % (AUTO) 6.8 % (3.0-13.0); NEUTROPHILS % (AUTO) 68.9 % (40.0-77.0); NUCLEATED RED BLOOD CELLS 0.9 % (0.0-0.19); PLATELET COUNT (AUTO) 187 K/uL (130-400); RED BLOOD CELL COUNT(AUTO) 2.77 MIL/uL (4.00-5.50); RED CELL DISTRIBUTION WIDTH 17.2 % (11.0-15.5); WHITE BLOOD COUNT (AUTO) 8.7 K/uL (4.8-10.8)
[2022-10-04 09:10] LABS: ALBUMIN 1.5 g/dL (3.5-5.0); CREATININE 0.3 mg/dL (0.5-1.5); MAGNESIUM 1.9 mg/dL (1.80-2.40); POTASSIUM 3.6 mmol/L (3.5-5.1); TOTAL PROTEIN, SERUM 5.3 g/dL (6.0-8.3)
[2022-10-04] MEDS: VANCOMYCIN KIT 1 GM/250 ML IV.KIT IV SCH ×2 (10:19→18:24)
[2022-10-04] MEDS: METOCLOPRAMIDE 10 MG/2 ML VIAL IVP SCH ×2 (10:19→20:14)
[2022-10-04] MEDS: NYSTATIN 100000 UNIT/ML 5ML UDCUP PO SCH ×2 (10:19→18:09)
[2022-10-04] MEDS: FAMOTIDINE 20MG VIAL IV SCH ×2 (10:19→20:14)
[2022-10-04] MEDS: ONDANSETRON 4MG INJ IVP PRN (11:52)
[2022-10-04 11:56] VITALS: BP 139/85
[2022-10-04] MEDS ORDERED: DIATR MEGLU/DIATRIZOATE SODIUM 30 ML BOTTLE ONE (14:35)
[2022-10-04 16:00] VITALS: BP 145/75
[2022-10-04] MEDS ORDERED: IOHEXOL-350 75 ML VIAL IV ONE (17:01)
[2022-10-04 19:30] VITALS: BP 131/73
[2022-10-04] MEDS: KETOROLAC 15MG/ML VIAL (15MG/ML) IV PRN (23:24)
[2022-10-04 23:36] VITALS: BP 146/70
[2022-10-05] MEDS: NYSTATIN 100000 UNIT/ML 5ML UDCUP PO SCH ×3 (01:55→17:02)
[2022-10-05] MEDS: FLUCONAZOLE 200 MG/NS 100 ML IV SCH (01:55)
[2022-10-05] MEDS: VANCOMYCIN KIT 1 GM/250 ML IV.KIT IV SCH (02:00)
[2022-10-05 03:51] VITALS: BP 154/71
[2022-10-05] MEDS: ZOSYN 3.375GM +NS 50ML IVPB SCH ×2 (06:27→14:34)
[2022-10-05] MEDS: INSULIN HUMULIN R 100 UNIT/ML 3ML SQ SCH ×3 (06:28→16:30)
[2022-10-05] MEDS: METOCLOPRAMIDE 10 MG/2 ML VIAL IVP SCH (07:30)
[2022-10-05] MEDS: FAMOTIDINE 20MG VIAL IV SCH (07:30)
[2022-10-05] MEDS: MAGNESIUM 2GM PREMIX 50ML 50 ML IV PRN (07:30)
[2022-10-05 07:57] VITALS: BP 142/82
[2022-10-05] MEDS: VANCOMYCIN 750MG VIAL IVPB SCH ×2 (10:39→18:05)
[2022-10-05 12:00] VITALS: BP 139/68
[2022-10-05] MEDS ORDERED: OXYC-38 PO (13:52)
[2022-10-05] MEDS ORDERED: FAMO10VI2 IV (13:52)
[2022-10-05] MEDS ORDERED: METO5VIA2 IVP (13:52)
[2022-10-05] MEDS ORDERED: NYST5ORA7 PO (13:52)
[2022-10-05 16:00] VITALS: BP 151/73
[2022-10-05] MEDS: KETOROLAC 15MG/ML VIAL (15MG/ML) IV PRN (18:05)
== END 2022-10-05 19:45 | DRG 853 ==
LOC: EDH 15:08 → EDHIP 17:41 → OBSVTOIN 17:41 → 3DH 09-27 17:30
PROVIDERS: ADMIT Internal Medicine Critical Care Medicine; ATTEND Internal Medicine Critical Care Medicine
PROC: 0DBM0ZZ Excision of Descending Colon, Open Approach (ICD-10-PCS; principal; 2022-09-28 13:34)
DX: A41.9 Sepsis, unspecified organism (principal); E43 Unspecified severe protein-calorie malnutrition; K65.1 Peritoneal abscess; T81.30XA Disruption of wound, unspecified, initial encounter; D68.9 Coagulation defect, unspecified; C15.9 Malignant neoplasm of esophagus, unspecified; K63.2 Fistula of intestine; C79.51 Secondary malignant neoplasm of bone; K56.7 Ileus, unspecified; K57.32 Diverticulitis of large intestine without perforation or abscess without bleeding; E86.0 Dehydration; Z93.3 Colostomy status; Z99.3 Dependence on wheelchair; G14 Postpolio syndrome; G89.3 Neoplasm related pain (acute) (chronic); C73 Malignant neoplasm of thyroid gland; E78.5 Hyperlipidemia, unspecified; I10 Essential (primary) hypertension; E11.9 Type 2 diabetes mellitus without complications; E89.0 Postprocedural hypothyroidism; K66.0 Peritoneal adhesions (postprocedural) (postinfection); T81.89XA Other complications of procedures, not elsewhere classified, initial encounter; Y83.8 Other surgical procedures as the cause of abnormal reaction of the patient, or of later complication, without mention of misadventure at the time of the procedure; Y92.89 Other specified places as the place of occurrence of the external cause; Z85.850 Personal history of malignant neoplasm of thyroid; Z74.01 Bed confinement status; Z82.49 Family history of ischemic heart disease and other diseases of the circulatory system; Z68.27 Body mass index [BMI] 27.0-27.9, adult; Z85.01 Personal history of malignant neoplasm of esophagus
CPT/HCPCS: 36415; 74177; 74178; 80048; 80053; 80202; 81001; 82140; 82550; 82948; 83605; 83735; 84100; 84145; 84484; 85025; 85610; 85730; 86850; 86900; 86901; 87040; 87070; 87076; 87077; 87088; 87186; 87635; 93005; 97039; A4344; A4606; A5073; G0378; J0330; J1100; J1200; J1450; J1815; J1885; J2001; J2250; J2270; J2274; J2370; J2405; J2543; J2550; J2704; J2710; J2765; J2997; J3010; J3370; J3475; J3480; J3490; J7030; Q9963; Q9967